=== PATIENT | female | born 1975 | race Caucasian/White ===

== ENCOUNTER 2016-09-10 14:47 | Emergency (ER) | payer OTHER ==
[~2016-09-10] VITALS: Ht 165.1 cm; Wt 65.3 kg
[~2016-09-10 14:47] MED LIST: ACET-868 PO; AMLO10TA2 PO; ASCO500C16 PO; ATEN50TA PO; BISA10SU61 PO; CINA30TA PO; CYAN1TAB43 PO; ERGO5000 PO; FOLI0.8T22 PO; FOLI20CA PO; HYDR1TAB PO; LOPE1LIQ31 PO; LOSA50TA21 PO; OMEG500C PO; OMEP20CA10 PO; ONDA4TAB5 PO; P-EP-426 PO; POLY17PO4 PO; SEVE800T8 PO; VITA400C24 PO
[2016-09-10] MEDS ORDERED: GELATIN SPONGE,ABSORBABLE 1 SPONGE SPONGE TP ONE (15:53)
[2016-09-10] MEDS ORDERED: CELLULOSE,OXIDIZED 1 PKT EACH MC ONE (16:00)
[2016-09-10 18:51] VITALS: BP 127/77
== END 2016-09-10 18:52 | disposition home or self-care (01) ==
LOC: ER 14:48
DX: I77.0 Arteriovenous fistula, acquired (principal); I10 Essential (primary) hypertension; Z88.0 Allergy status to penicillin; Z88.5 Allergy status to narcotic agent
CPT/HCPCS: A4606; A6403; Z7610

== ENCOUNTER 2024-04-04 14:52 | Emergency (ER) | payer OTHER, MEDICAID ==
[~2024-04-04] VITALS: Ht 165.1 cm; Wt 67.6 kg
[~2024-04-04 14:52] MED LIST changes: +AMLO-213 PO; -AMLO10TA2 PO; -ASCO500C16 PO; +ASCO500C6 PO; -CINA30TA PO; +CINA30TA2 PO; -LOSA50TA21 PO; +LOSA50TA39 PO; -OMEP20CA10 PO; +OMEP20CA15 PO
[2024-04-04 16:17] LABS: CALCIUM, SERUM 9.4 mg/dL (8.5-10.1); CREATININE 3.2 mg/dL (0.6-1.3); POTASSIUM 4.4 mmol/L (3.5-5.1)
[2024-04-04 16:32] LABS: INR 0.96 (0.91-1.10); PARTIAL THROMBOPLASTIN TIME 23.3 SEC (24.3-34.3); PROTHROMBIN TIME 10.2 SECS (9.2-11.1)
[2024-04-04 17:00] LABS: BASOPHILS % (AUTO) 0.3 % (0.0-2.0); EOSINOPHILS # (AUTO) 0.1 K/uL (0.0-0.7); EOSINOPHILS % (AUTO) 1.1 % (0.0-6.0); HEMATOCRIT 35 % (33-45); HEMOGLOBIN 11.5 g/dL (11.5-14.8); LYMPHOCYTES % (AUTO) 13.4 % (20.0-44.0); MEAN CORPUSCULAR HEMOGLOBIN 31 PG (26.0-33.0); MEAN CORPUSCULAR HGB CONC 33 g/dl (31.0-36.0); MEAN CORPUSCULAR VOLUME 95 fL (82-100); MONOCYTES # (AUTO) 0.8 K/uL (0.1-1.30); MONOCYTES % (AUTO) 10.9 % (2.0-12.0); NEUTROPHILS # (AUTO) 5.5 K/uL (1.8-8.9); NEUTROPHILS % (AUTO) 74.3 % (43.0-81.0); PLATELET COUNT (AUTO) 125 K/uL (150-450); RED BLOOD CELL COUNT(AUTO) 3.71 MIL/uL (4.0-5.2); RED CELL DISTRIBUTION WIDTH 17.8 % (11.5-15.0); WHITE BLOOD COUNT (AUTO) 7.4 K/uL (4.3-11.0)
[2024-04-04 19:11] VITALS: BP 136/78; TEMP 98.9; O2SAT 99
== END 2024-04-04 19:00 | disposition home or self-care (01) ==
LOC: ER 14:55
DX: T82.838A Hemorrhage due to vascular prosthetic devices, implants and grafts, initial encounter (principal); I12.0 Hypertensive chronic kidney disease with stage 5 chronic kidney disease or end stage renal disease; N18.6 End stage renal disease; K21.9 Gastro-esophageal reflux disease without esophagitis; G80.9 Cerebral palsy, unspecified; Z99.2 Dependence on renal dialysis; Z88.0 Allergy status to penicillin; Z88.8 Allergy status to other drugs, medicaments and biological substances; Y84.8 Other medical procedures as the cause of abnormal reaction of the patient, or of later complication, without mention of misadventure at the time of the procedure; Y92.89 Other specified places as the place of occurrence of the external cause
CPT/HCPCS: 36415; 80048-TC; 85025-TC; 85730-TC